=== PATIENT | male | born 2000 | race Caucasian/White ===

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

== ENCOUNTER 2021-03-16 03:51 | Emergency (ER) | payer OTHER ==
[~2021-03-16] VITALS: Ht 182.9 cm; Wt 115.2 kg
[~2021-03-16 03:51] MED LIST changes: +KEFLEX500 M1 PO
[2021-03-16 05:47] VITALS: BP 119/70
== END 2021-03-16 05:30 | disposition home or self-care (01) ==
LOC: M.ERS 03:51
DX: S93.491A Sprain of other ligament of right ankle, initial encounter (principal); X50.9XXA Other and unspecified overexertion or strenuous movements or postures, initial encounter; Y93.89 Activity, other specified; Y92.89 Other specified places as the place of occurrence of the external cause; Y99.8 Other external cause status